=== PATIENT | male | born 1960 ===

== ENCOUNTER 2017-02-22 17:22 | Emergency (ER) | payer SELFPAY ==
[2017-02-22 18:04] VITALS: BP 120/81; PULSE 80; RESP 18; TEMP 99.2; O2SAT 97
[2017-02-22] MEDS ORDERED: Promethazine/Cod 6.25mg-10mg/5ml Syr UD PO STA (18:40)
[2017-02-22] MEDS ORDERED: Promethazine/Cod 6.25mg-10mg/5ml Syr UD ONE (18:54)
--- NOTE | 2017-02-22 19:05 | C.PDOC ---
History Of Present Illness 56 yr old male presents to the ER with complaints of body aches, nasal congestion, dry cough and low grade fever for the past few days. Patient reports sick contact with son who is also a patient in the ER. Denies high fever , lethargy, drooling, chest pain, SOB, vomiting, headache, weakness or numbness. Time Seen by Provider: 02/22/17 18:13 Chief Complaint (Nursing): Flu-like Symptoms History Per: Patient History/Exam Limitations: no limitations Current Symptoms Are (Timing): Still Present Sick Contacts (Context): Family Member(s) (son) Past Medical History Reviewed: Historical Data, Nursing Documentation, Vital Signs Vital Signs: Last Vital Signs Temp 99.2 F 02/22/17 18:02 Pulse 80 02/22/17 18:02 Resp 18 02/22/17 18:02 BP 120/81 02/22/17 18:02 Pulse Ox 97 02/22/17 19:08 Family History: States: No Known Family Hx - Social History Hx Alcohol Use: No Hx Substance Use: No - Immunization History Hx Influenza Vaccination: No Review Of Systems Except As Marked, All Systems Reviewed And Found Negative. Constitutional: Positive for: Fever (low grade), Other ((+) body aches) ENT: Positive for: Nose Congestion Cardiovascular: Negative for: Chest Pain Respiratory: Positive for: Cough (dry). Negative for: Shortness of Breath Gastrointestinal: Negative for: Vomiting Neurological: Negative for: Weakness, Numbness, Headache Physical Exam - Physical Exam Appears: Well, Non-toxic, No Acute Distress Skin: Warm, Dry, No Rash Eye(s): bilateral: PERRL Ear(s): Bilateral: Normal Nose: Discharge (clear rhinorrhea) Oral Mucosa: Moist, No Drooling Lips: Normal Appearing Throat: Erythema (mild) Neck: Trachea Midline, Supple Cardiovascular: Rhythm Regular, No Murmur, No JVD Respiratory: No Decreased Breath Sounds, No Accessory Muscle Use, No Rales, No Rhonchi, No Stridor, No Wheezing Gastrointestinal/Abdominal: Soft, No Tenderness Extremity: Normal ROM, No Pedal Edema, No Deformity, No Swelling Neurological/Psych: Oriented x3, Normal Speech ED Course And Treatment O2 Sat by Pulse Oximetry: 97 (RA) Pulse Ox Interpretation: Normal - Radiology CXR: Interpreted by Me, Viewed By Me CXR Interpretation: Yes: No Acute Disease Progress Note: On re-eval, pt is awake, alert, not in any apparent distress. Afebrile, hemodynamicaly stable. non-toxic. Tolerate PO well in ED. PulseOx 97 % RA. Neck: SUpple, (-) JVD, (-) meningeal sign. ENT: No acute findings. uvula m idline, no edema. Lungs: CTA B/L, BS equal B/L. ABd: benign. Neurologicaly intact. CXR- appears normal. Pt has clinical findings c/w acute bronchitis. Pt advised and ref. to F/U with PMD in 1-2 days for re-eavl. return to ED at any time if any worsening or new changes. Medical Decision Making Medical Decision Making: PLAN: * CXR * Motrin PO * Zithromax PO * Phenergan PO Disposition Counseled Patient/Family Regarding: Studies Performed, Diagnosis, Need For Followup, Rx Given - Disposition Referrals: [facility] [Outside] Disposition: HOME/ ROUTINE Disposition Time: 19:00 Condition: STABLE Additional Instructions: ENCOURAGE FLUIDS TAKE MEDICATION PRESCRIBED FOLLOW UP WITH PMD IN 2-3 DAYS FOR RE-EVALUATION. RETURN TO ED IF ANY WORSENING OR NEW CHANGES. Prescriptions: Albuterol HFA [Ventolin HFA 90 mcg/actuation (8 g)] 1 puff IH Q6 #1 inhaler Azithromycin [Zithromax] 250 mg PO DAILY #4 tab Benzonatate [Tessalon Perle] 100 mg PO TID #14 capsule Instructions: Acute Bronchitis (ED) Forms: [employer] ([place]osotho) - Clinical Impression Clinical Impression: Bronchitis - PA / [employer] / Resident Statement MD/DO has reviewed & agrees with the documentation as recorded. - Scribe Statement The provider has reviewed the documentation as recorded by the Scribe Heather Villasenor All medical record entries made by the Scribe were at my direction and personally dictated by me. I have reviewed the chart and agree that the record accurately reflects my personal performance of the history, physical exam, medical decision making, and the department course for this patient. I have also personally directed, reviewed, and agree with the discharge instructions and disposition.
--- NOTE | 2017-02-23 08:55 | RAD ---
HISTORY: Cough COMPARISON: No prior. TECHNIQUE: Chest PA and lateral FINDINGS: LUNGS: No consolidation. 6 mm nodular opacity medial right lung base -appears too peripheral to be a prominent vessel on end. Not localized on lateral view. PLEURA: No significant pleural effusion identified. No pneumothorax apparent. CARDIOVASCULAR: Normal. OSSEOUS STRUCTURES: Bilateral shoulder mild arthrosis. Thoracic spondylosis VISUALIZED UPPER ABDOMEN: Normal. OTHER FINDINGS: None. IMPRESSION: No infiltrate Five-6 mm rounded nodule medial right lung base -consider CT chest to clarify
== END 2017-02-22 20:05 | disposition home or self-care (01) ==
LOC: C.ER 17:22
DX: J20.9 Acute bronchitis, unspecified (principal)